=== PATIENT | female | born 1930 | race Caucasian/White ===

== ENCOUNTER 2017-11-23 10:34 | Emergency (ER) | payer SELFPAY ==
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
--- NOTE | 2017-11-25 08:03 | RADIOLOGY REPORT ---
EXAM: LEFT TIBIA AND FIBULA HISTORY: INJURY. TECHNIQUE: Two views of the left tibia and fibula are provided without comparison examinations. FINDINGS: There is no radiographic evidence of a fracture or dislocation of the left tibia and fibula. Minimal soft tissue swelling is noted without anteromedial aspect of the left tibia and fibula suggesting laceration. No radiopaque foreign bodies are identified. IMPRESSION: MINIMAL SOFT TISSUE SWELLING IS NOTED OVER THE ANTEROMEDIAL LEFT TIBIA AND FIBULA WITHOUT EVIDENCE OF RADIOPAQUE FOREIGN BODY, FRACTURE, OR DISLOCATION. JOB NUMBER: [id number] MTDD
== END 2017-11-23 12:28 | disposition home or self-care (01) ==
LOC: ER 10:34
DX: S80.12XD Contusion of left lower leg, subsequent encounter (principal); V49.50XD Passenger injured in collision with unspecified motor vehicles in traffic accident, subsequent encounter; I10 Essential (primary) hypertension
CPT/HCPCS: 99283